=== PATIENT | female | born 1935 | race Two or more races ===

== ENCOUNTER 2020-09-16 01:06 | Inpatient (IN) | payer OTHER ==
[~2020-09-16] VITALS: Ht 157.5 cm; Wt 55.5 kg
[2020-09-16 02:36] LABS: Albumin 3.1 g/dL (3.4-5.0); Anion Gap 10 (5-15); Blood Urea Nitrogen 43 mg/dL (7-18); Calcium 8.3 mg/dL (8.5-10.1); Carbon Dioxide 26 mmol/L (21-32); Chloride 104 mmol/L (98-107); Glucose 92 mg/dL (74-106); Potassium 4.2 mmol/L (3.5-5.1); Sodium 140 mmol/L (136-145)
[2020-09-16 02:40] LABS: Alanine Aminotransferase 21 U/L (13-56); Alkaline Phosphatase 46 U/L (45-117); Aspartate Aminotransferase 23 U/L (15-37); BUN/Creatinine Ratio 18.1; Bilirubin, Total 0.3 mg/dL (0.2-1.0); GFR African American 25 mL/min; GFR Non-African American 20 mL/min; Total Protein 6.5 g/dL (6.4-8.2)
[2020-09-16 02:45] LABS: Basophils # (auto) 0 10 ^3/uL (0-0.2); Basophils % (auto) 0.6 % (0.0-2.0); Eosinophils # (auto) 0.1 10 ^3/uL (0-0.8); Eosinophils % (auto) 0.8 % (0.0-7.0); Hematocrit 34.9 % (36.0-46.0); Hemoglobin 11.7 g/dL (12.2-16.2); Lymphocytes # (auto) 1.1 10 ^3/uL (0.4-5.4); Lymphocytes % (auto) 13.8 % (10.0-50.0); Mean Corpuscular Hemoglobin 32.8 pg (28.0-32.0); Mean Corpuscular Hgb Conc. 33.7 g/dL (32.0-36.0); Mean Corpuscular Volume 97.4 fL (80.0-100.0); Monocytes # (auto) 0.7 10 ^3/uL (0-1.3); Monocytes % (auto) 8.5 % (0.0-12.0); Neutrophils % (auto) 76.3 % (37.0-80.0); Red Blood Cells 3.58 10^6/uL (4.0-5.20); Red Cell Distribution Width 14.3 % (11.8-14.3); White Blood Cell 7.9 10^3/uL (4.4-10.8)
[2020-09-16] MEDS ORDERED: MORPHINE SULFATE INJECTION 2 MG/ML SYRG IV ONE (04:45)
[2020-09-16] MEDS ORDERED: ONDANSETRON HCL 4 MG/2 ML VIAL IV ONE (04:45)
[2020-09-16] MEDS ORDERED: AMIODARONE HCL 150 MG in D5W 5% 100 ML IV ONE (09:30)
[2020-09-16] MEDS ORDERED: SODIUM CHLORIDE 0.9% 1,000 ML IV ONE (09:30)
[2020-09-16] MEDS ORDERED: AMIODARONE 450mg/250ml AE 250 ML IV SCH (09:45)
[2020-09-16 13:53] LABS: INR 0.98 (0.9-1.15); Partial Thromboplastin Time 22.2 sec (23.0-31.2)
[2020-09-16] MEDS ORDERED: ONDANSETRON HCL 4 MG/2 ML VIAL IV PRN (14:30)
[2020-09-16] MEDS ORDERED: ACETAMINOPHEN 650 mg PER 20.3 mL UD PO PRN (14:30)
[2020-09-16] MEDS ORDERED: NITROGLYCERIN 0.4 MG SL TAB SL PRN (14:30)
[2020-09-16] MEDS ORDERED: HYDROcodone-ACET 5/325MG TAB PO PRN (14:30)
[2020-09-16] MEDS ORDERED: MORPHINE SULFATE INJECTION 2 MG/ML SYRG IV PRN (14:30)
[2020-09-16] MEDS ORDERED: hydrALAZINE HCL 20 MG/ML VL IV PRN (14:30)
[2020-09-16] MEDS ORDERED: METOPROLOL TARTRATE 25 MG TAB PO ONE (16:15)
[2020-09-16] MEDS: D5W/SOD CHL 0.45% 1,000 ML IV SCH (17:27)
[2020-09-16] MEDS: AMIODARONE 450mg/250ml AE 250 ML IV SCH (18:39)
[2020-09-16 19:53] LABS: Urine Bacteria NONE SEEN /hpf (None Seen); Urine Blood Negative /uL (Negative); Urine Mucus FEW (None Seen); Urine Specific Gravity 1.023 (1.001-1.035); Urine WBC 2 /hpf (0 - 5)
[2020-09-16] MEDS: METOPROLOL TARTRATE 25 MG TAB PO SCH (21:45)
[2020-09-16 22:00] VITALS: BP 112/77
[2020-09-16] MEDS ORDERED: DONE5TAB80 PO (23:26)
[2020-09-16] MEDS ORDERED: METO25TA5 PO (23:26)
[2020-09-16] MEDS ORDERED: ASPI325T4 PO (23:26)
[2020-09-16] MEDS ORDERED: LEVO50TA7 PO (23:26)
[2020-09-16] MEDS ORDERED: MULT-1018 PO (23:26)
[2020-09-16] MEDS ORDERED: DOCU-94 PO (23:26)
[2020-09-16] MEDS ORDERED: FURO20TA3 PO (23:26)
[2020-09-17] MEDS: MORPHINE SULFATE INJECTION 2 MG/ML SYRG IV PRN ×4 (01:53→23:15)
[2020-09-17] MEDS: D5W/SOD CHL 0.45% 1,000 ML IV SCH ×2 (03:50→17:34)
[2020-09-17 05:00] VITALS: BP 113/74
[2020-09-17 06:36] LABS: Potassium 3.8 mmol/L (3.5-5.1)
[2020-09-17 06:47] LABS: BUN/Creatinine Ratio 18.9; Calcium 8.3 mg/dL (8.5-10.1)
[2020-09-17 08:00] VITALS: BP 131/83
[2020-09-17] MEDS: METOPROLOL TARTRATE 25 MG TAB PO SCH ×2 (10:24→23:06)
[2020-09-17] MEDS: FAMOTIDINE 20 MG TAB PO SCH (10:34)
[2020-09-17] MEDS: AMIODARONE 450mg/250ml AE 250 ML IV SCH ×2 (14:50→21:45)
[2020-09-17 16:14] VITALS: BP 121/69
[2020-09-17 21:29] VITALS: BP 114/72
[2020-09-18] MEDS ORDERED: DIGOXIN (250MCG/ML) 2 ML AMPULE ONE (00:57)
[2020-09-18] MEDS ORDERED: DIGOXIN (250MCG/ML) 2 ML AMPULE IV ONE ×2 (01:00→07:00)
[2020-09-18] MEDS ORDERED: AMIODARONE 450mg/250ml AE 250 ML IV SCH (01:15)
[2020-09-18 04:48] VITALS: BP 132/70
[2020-09-18] MEDS: D5W/SOD CHL 0.45% 1,000 ML IV SCH (06:23)
[2020-09-18 06:33] LABS: Basophils # (auto) 0 10 ^3/uL (0-0.2); Eosinophils # (auto) 0.1 10 ^3/uL (0-0.8); Eosinophils % (auto) 1.2 % (0.0-7.0); Hematocrit 25.6 % (36.0-46.0); Lymphocytes # (auto) 0.7 10 ^3/uL (0.4-5.4); Lymphocytes % (auto) 7.9 % (10.0-50.0); Neutrophils # (auto) 7.4 10 ^3/uL (1.6-8.6)
[2020-09-18 06:36] LABS: Basophils % (auto) 0.4 % (0.0-2.0); Mean Corpuscular Hemoglobin 34.8 pg (28.0-32.0); Mean Corpuscular Volume 99.6 fL (80.0-100.0); Monocytes # (auto) 0.7 10 ^3/uL (0-1.3); Monocytes % (auto) 8.1 % (0.0-12.0); Neutrophils % (auto) 82.4 % (37.0-80.0); Red Blood Cells 2.58 10^6/uL (4.0-5.20)
[2020-09-18 06:43] LABS: INR 1.03 (0.9-1.15); Partial Thromboplastin Time 25.4 sec (23.0-31.2)
[2020-09-18 06:47] LABS: BUN/Creatinine Ratio 17.7; Calcium 7.9 mg/dL (8.5-10.1); Potassium 4.3 mmol/L (3.5-5.1)
[2020-09-18 07:50] VITALS: BP 114/67
[2020-09-18] MEDS ORDERED: fentaNYL CITRATE 100 MCG/2 ML VL ONE (07:55)
[2020-09-18 08:00] VITALS: BP 114/67
[2020-09-18] MEDS ORDERED: LABETALOL HCL 5 MG/ML ML 20ML VIAL IV ONE (08:17)
[2020-09-18] MEDS: LACTATED RINGER'S 1,000 ML IV SCH ×2 (09:45→19:45)
[2020-09-18] MEDS ORDERED: METOCLOPRAMIDE HCL 5MG/ml INJ 2ml VIAL IV PRN (09:45)
[2020-09-18] MEDS ORDERED: LABETALOL HCL 5 MG/ML 4ML SYRINGE IV PRN (09:45)
[2020-09-18] MEDS: ceFAZolin 1GM/50ML 50 ML IV SCH ×2 (09:45→19:03)
[2020-09-18] MEDS ORDERED: MORPHINE SULFATE 4 MG/ML SYR/VIAL IV PRN (09:45)
[2020-09-18] MEDS: METOPROLOL TARTRATE 25 MG TAB PO SCH ×2 (12:44→23:08)
[2020-09-18] MEDS: ENOXAPARIN SOD 30 MG/0.3 ML SYRINGE SC SCH (12:45)
[2020-09-18] MEDS: AMIODARONE 450mg/250ml AE 250 ML IV SCH ×2 (12:45→12:46)
[2020-09-18] MEDS: SODIUM CHLOR 0.9% PF (SALINE LOCK) 10ML VIAL/SYR IV SCH ×2 (12:46→22:00)
[2020-09-18 15:51] VITALS: BP 151/80
[2020-09-18 20:00] VITALS: BP 130/68
[2020-09-18 22:00] VITALS: BP 130/68
[2020-09-19 05:00] VITALS: BP 128/75
[2020-09-19 05:29] LABS: Basophils # (auto) 0 10 ^3/uL (0-0.2); Eosinophils # (auto) 0.1 10 ^3/uL (0-0.8); Lymphocytes # (auto) 0.5 10 ^3/uL (0.4-5.4); White Blood Cell 9.2 10^3/uL (4.4-10.8)
[2020-09-19 05:32] LABS: Basophils % (auto) 0.5 % (0.0-2.0); Eosinophils % (auto) 0.6 % (0.0-7.0); Hematocrit 24.9 % (36.0-46.0); Hemoglobin 8.8 g/dL (12.2-16.2); Lymphocytes % (auto) 5.6 % (10.0-50.0); Mean Corpuscular Hemoglobin 34.7 pg (28.0-32.0); Mean Corpuscular Hgb Conc. 35.2 g/dL (32.0-36.0); Mean Corpuscular Volume 98.5 fL (80.0-100.0); Monocytes # (auto) 0.8 10 ^3/uL (0-1.3); Monocytes % (auto) 8.6 % (0.0-12.0); Neutrophils # (auto) 7.8 10 ^3/uL (1.6-8.6); Neutrophils % (auto) 84.7 % (37.0-80.0); Nucleated Red Blood Cells % 0.1 %; Red Blood Cells 2.53 10^6/uL (4.0-5.20); Red Cell Distribution Width 14.5 % (11.8-14.3)
[2020-09-19] MEDS: LACTATED RINGER'S 1,000 ML IV SCH (05:46)
[2020-09-19] MEDS: SODIUM CHLOR 0.9% PF (SALINE LOCK) 10ML VIAL/SYR IV SCH ×2 (05:47→14:38)
[2020-09-19 05:53] LABS: BUN/Creatinine Ratio 14.4; Calcium 8.1 mg/dL (8.5-10.1); Potassium 4.6 mmol/L (3.5-5.1)
[2020-09-19] MEDS: AMIODARONE 450mg/250ml AE 250 ML IV SCH (06:56)
[2020-09-19 09:00] VITALS: BP 161/80
[2020-09-19] MEDS: METOPROLOL TARTRATE 25 MG TAB PO SCH (11:32)
[2020-09-19] MEDS: ENOXAPARIN SOD 30 MG/0.3 ML SYRINGE SC SCH (11:32)
[2020-09-19] MEDS: FAMOTIDINE 20 MG TAB PO SCH (11:32)
[2020-09-19 12:00] VITALS: BP 151/91
[2020-09-19] MEDS ORDERED: AMIODARONE HCL 200 MG TAB PO SCH (14:30)
[2020-09-19 17:00] VITALS: BP 128/77
[2020-09-19 19:11] VITALS: BP 128/77
[2020-09-19 21:49] VITALS: BP 149/97
[2020-09-20] MEDS ORDERED: ASPirin-EC 81 mg tab PO SCH (10:00)
== END 2020-09-19 22:15 | DRG 481 ==
LOC: EDBD 01:06 → ER 01:06 → TELE 01:07 → TELE-CENTR 20:32
PROVIDERS: ADMIT Hospitalist; ATTEND Hospitalist
PROC: 0QS636Z Reposition Right Upper Femur with Intramedullary Internal Fixation Device, Percutaneous Approach (ICD-10-PCS; principal; 2020-09-18 08:08)
DX: S72.141A Displaced intertrochanteric fracture of right femur, initial encounter for closed fracture (principal); I13.0 Hypertensive heart and chronic kidney disease with heart failure and stage 1 through stage 4 chronic kidney disease, or unspecified chronic kidney disease; I48.20 Chronic atrial fibrillation, unspecified; E03.9 Hypothyroidism, unspecified; F03.90 Unspecified dementia, unspecified severity, without behavioral disturbance, psychotic disturbance, mood disturbance, and anxiety; M85.80 Other specified disorders of bone density and structure, unspecified site; I50.9 Heart failure, unspecified; D64.9 Anemia, unspecified; R62.7 Adult failure to thrive; E78.5 Hyperlipidemia, unspecified; Z20.822 Contact with and (suspected) exposure to COVID-19; F32.9 Major depressive disorder, single episode, unspecified; N18.9 Chronic kidney disease, unspecified; W18.39XA Other fall on same level, initial encounter; Y93.01 Activity, walking, marching and hiking; Y92.091 Bathroom in other non-institutional residence as the place of occurrence of the external cause; Z82.49 Family history of ischemic heart disease and other diseases of the circulatory system; Z90.710 Acquired absence of both cervix and uterus; Z91.81 History of falling; Y99.8 Other external cause status
CPT/HCPCS: 36415; 51702; 70450; 71045; 71250; 72192; 73501; 73502; 76000; 80048; 80053; 81001; 84484; 85025; 85610; 85730; 86850; 86900; 86901; 87086; 87426; 93005; 93306; 96361; 96365; 96375; A4565; C1713; G0378; J0690; J2405; J3490; J7060